=== PATIENT | male | born 1990 | race Hispanic/Latino ===

== ENCOUNTER 2016-12-08 07:44 | Observation (INO) | payer MEDICAID, OTHER ==
[2016-12-08 07:52] VITALS: BMI 20.9
[2016-12-08 07:56] VITALS: O2SAT 100
[2016-12-08] MEDS ORDERED: Sodium Chloride 0.9% 1,000 ML IV STA (08:38)
--- NOTE | 2016-12-08 08:54 | ED PDOC ---
Arrival/HPI - General Chief Complaint: Shortness Of Breath Time Seen by Provider: 12/08/16 07:47 Historian: Patient - History of Present Illness Narrative History of Present Illness (Text): 12/08/16 08:47 Vimal Ospina is a 26 year old male who presents to the emergency department complaining of shortness of breath which began around 5 a.m. today morning. Patient states he also developed left sided paresthesia to face, arm and leg at that time, and states his left arm was cramped up as a result. States he used his mother's asthma breathing treatment at home for appreciable relief. Patient also complains of indigestion since yesterday and experienced 1 episode of vomiting in the morning. Also reports of mild lightheadness. Denies fever, chills, headache, chest pain, shortness of breath, cough, abdominal pain, diarrhea, urinary symptoms or any other complaints at this time. PMD: . Time/Duration: 4-6 hours Symptom Onset: Gradual Symptom Course: Improving Severity Level: Mild Activities at Onset: Light Context: Home Past Medical History - Provider Review Nursing Documentation Reviewed: Yes - Infectious Disease Hx of Infectious Diseases: None - Tetanus Immunization Tetanus Immunization: Unknown - Past Medical History Past Medical History: No Previous - Cardiac Hx Cardiac Disorders: No Hx Hypertension: No - Pulmonary Hx Asthma: Yes ("when he was younger") Hx Tuberculosis: No - Neurological HX Cerebrovascular Accident: No Hx Seizures: No - Hematological/Oncological Hx Cancer: No - Integumentary Other/Comment: SHINGLES - Genitourinary/Gynecological Hx Sexually Transmitted Diseases: No - Psychiatric Hx Psychophysiologic Disorder: No Hx Substance Use: Yes (CANNABIS) - Past Surgical History Past Surgical History: No Previous - Anesthesia Hx Anesthesia: No Hx Anesthesia Reactions: No Hx Malignant Hyperthermia: No - Suicidal Assessment Feels Threatened In Home Enviroment: No Family/Social History - Physician Review Nursing Documentation Reviewed: Yes Family/Social History: No Known Family HX Smoking Status: Heavy Smoker > 10 Cigarettes Daily Hx Alcohol Use: No Hx Substance Use: Yes (CANNABIS) Substance used: marijuana Amount: 1 Hx Substance Use Treatment: No Allergies/Home Meds Allergies/Adverse Reactions: Allergies lactose Allergy (Verified 12/08/16 07:53) DIARRHEA Home Medications: Home Meds Medication Instructions Recorded Confirmed No Known Home Med 12/08/16 12/08/16 Review of Systems - Physician Review All systems were reviewed & negative as marked: Yes - Review of Systems Constitutional: Normal. absent: Fatigue, Fevers Respiratory: SOB. absent: Cough, Sputum Cardiovascular: Normal. absent: Chest Pain, Palpitations Gastrointestinal: Nausea, Vomiting. absent: Abdominal Pain, Diarrhea Genitourinary Male: Normal. absent: Dysuria, Frequency Musculoskeletal: Normal. absent: Back Pain Neurological: Dizziness (lightheadedness ), Other (paresthesia ) Psychiatric: Normal Physical Exam - Physical Exam Narrative Physical Exam (Text): Constitutional: No acute distress. Head: Normocephalic. Atraumatic. Eyes: PERRL. ENT: Moist mucous membranes. No pharyngeal erythema or exudates. Neck: Supple. Cardiovascular: Regular rate. Chest: No tenderness. Respiratory: Clear to auscultation bilaterally. GI: Soft. Nontender. Nondistended. Back: No CVA tenderness. Musculoskeletal: No tenderness or swelling of extremities. Skin: No rash. Neurologic: Alert, no focal deficit. Motor strength 5/5 X4. Cranial nerves II- XII intact. Sensation to touch intact bilaterally. [id number] test normla. Vital Signs Reviewed: Yes Vital Signs Temp Pulse Resp BP Pulse Ox 12/08/16 11:00 55 L 17 150/90 100 12/08/16 09:45 58 L 17 154/70 H 100 12/08/16 07:56 97.7 F 53 L 17 155/82 H 100 12/08/16 07:55 17 100 Temperature: Afebrile Blood Pressure: Normal Pulse: Regular Respiratory Rate: Normal Appearance: Positive for: Well-Appearing, Non-Toxic, Comfortable Pain Distress: None Mental Status: Positive for: Alert and Oriented X 3 Medical Decision Making ED Course and Treatment: 12/08/16 08:59 Impression: A 26 year old male who presents to the emergency department complaining of shortness of breath and paresthesia since 5 am. Plan: -- EKG -- Labs -- Chest X-ray -- Zofran -- IV fluids -- Urinalysis -- Reassess and disposition Progress Notes: 12/08/16 09:00 EKG interpreted by em: NSR @ 50bpm. No ST elevations. No T wave inversions. Patient is wood at baseline per records from previous visits. 12/08/16 10:36 Chest X-ray reviewed: IMPRESSION: No active disease. Patient with no active symptoms. Potassium repleted. Dr. House accepts patient for observation for hypokalemia. - Lab Interpretations Lab Results: 12/08/16 09:15 12/08/16 11:00 Lab Results 12/08/16 11:00: Potassium 2.6 L* 12/08/16 09:15: Sodium 140, Potassium 2.7 L*, Chloride 95, Carbon Dioxide 29, Anion Gap 19, BUN 13, Creatinine 0.9, Est GFR ( Amer) > 60, Est GFR (Non- Af Amer) > 60, Random Glucose 95, Calcium 9.6, Phosphorus 2.2 L, Magnesium 2.2, Total Bilirubin 0.9, AST 46, ALT 46, Alkaline Phosphatase 86, Total Protein 8.6 H, Albumin 4.5, Globulin 4.2, Albumin/Globulin Ratio 1.1 12/08/16 09:15: WBC 6.7 D, RBC 5.19, Hgb 15.0, Hct 41.4 L, MCV 79.8 L, MCH 28.9 , MCHC 36.2, RDW 13.7, Plt Count 222, MPV 9.7, Gran % 69.9 H, Lymph % (Auto) 18.6 L, Yell % (Auto) 10.7 H, Eos % (Auto) 0.5 L, Baso % (Auto) 0.3, Gran # 4.65 , Lymph # 1.2, Yell # 0.7 H, Eos # 0.0, Baso # 0.02 12/08/16 08:38: Urine Color Yellow, Urine Appearance Clear, Urine pH 8.5, Ur Specific [place] 1.010, Urine Protein Negative, Urine Glucose (UA) Negative, Urine Ketones 15 H, Urine Blood Negative, Urine Nitrate Negative, Urine Bilirubin Negative, Urine Urobilinogen 0.2, Ur Leukocyte Esterase Negative I have reviewed the lab results: Yes - RAD Interpretation Narrative RAD Interpretations (Text): Chest X-ray results: FINDINGS: LUNGS: No active pulmonary disease. PLEURA: No significant pleural effusion identified. No pneumothorax apparent. CARDIOVASCULAR: Normal. OSSEOUS STRUCTURES: No significant abnormalities. VISUALIZED UPPER ABDOMEN: Normal. OTHER FINDINGS: None. IMPRESSION: No active disease. 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 - Medication Orders Current Medication Orders: Discontinued Medications Sodium Chloride (Sodium Chloride 0.9%) 1,000 mls @ 999 mls/hr IV .Q1H1M STA Stop: 12/08/16 09:38 Last Admin: 12/08/16 09:12 Dose: 999 mls/hr Potassium Chloride (Potassium Chloride 10 Meq/100 Ml) 10 meq in 100 mls @ 100 mls/hr IVPB ONCE ONE Stop: 12/08/16 10:50 Last Admin: 12/08/16 10:14 Dose: 100 mls/hr Ondansetron HCl (Zofran Inj) 4 mg IVP STAT STA Stop: 12/08/16 08:39 Last Admin: 12/08/16 09:13 Dose: 4 mg Potassium Chloride (K-Dur 20 Meq Er Tab) 40 meq PO STAT STA Stop: 12/08/16 09:52 Last Admin: 12/08/16 10:13 Dose: 40 meq - Scribe Statement The provider has reviewed the documentation as recorded by the David Qiu Provider Attestation: All medical record entries made by the David were at my direction and personally dictated by me. I have reviewed the chart and agree that the record accurately reflects my personal performance of the history, physical exam, medical decision making, and the department course for this patient. I have also personally directed, reviewed, and agree with the discharge instructions and disposition. Disposition/Present on Arrival - Present on Arrival Any Indicators Present on Arrival: No History of DVT/PE: No History of Uncontrolled Diabetes: No Urinary Catheter: No History of Decub. Ulcer: No History Surgical Site Infection Following: None - Disposition Have Diagnosis and Disposition been Completed?: Yes Diagnosis: Hypokalemia Disposition: HOSPITALIZED Disposition Time: 10:00 Patient Plan: Observation, Telemetry Condition: FAIR
[2016-12-08 09:20] LABS: ADD MANUAL DIFF? NO
[2016-12-08 09:23] LABS: BASO # 0.02 K/mm3 (0.0-2.0); BASO % 0.3 % (0.0-3.0); EOS % 0.5 % (1.5-5.0); GRAN # 4.65 (1.4-6.5); GRAN % 69.9 % (50.0-68.0); HEMATOCRIT 41.4 % (42.0-52.0); LYMPH # 1.2 (1.2-3.4); LYMPH % 18.6 % (22.0-35.0); MEAN CELL VOLUME 79.8 fL (80.0-105.0); MEAN CORPUSCULAR HEMOGLOBIN 28.9 pg (25.0-35.0); MEAN CORPUSCULAR HGB CONC 36.2 g/dl (31.0-37.0); MEAN PLATELET VOLUME 9.7 fl (7.0-11.0); MONO # 0.7 (0.1-0.6); MONO % 10.7 % (1.0-6.0); PLATELET COUNT 222 10^3/uL (120.0-450.0); RED CELL DISTRIBUTION WIDTH 13.7 % (11.5-14.5); WHITE BLOOD COUNT 6.7 10^3/ul (4.5-11.0)
[2016-12-08 09:24] LABS: PH,URINE 8.5 (4.7-8.0); URINE BILIRUBIN NEGATIVE (NEGATIVE); URINE BLOOD NEGATIVE (NEGATIVE); URINE GLUCOSE (UA) NEGATIVE (NEGATIVE); URINE KETONE 15 mg/dL (NEGATIVE); URINE LEUKOCYTE ESTERASE NEGATIVE Leu/uL (NEGATIVE); URINE PROTEIN NEGATIVE mg/dL (<30 mg/dL); URINE UROBILINOGEN 0.2 E.U./dL (<1 E.U./dL)
[2016-12-08 09:26] LABS: URINE APPEARANCE CLEAR (CLEAR); URINE COLOR YELLOW (YELLOW)
[2016-12-08 09:36] LABS: ALB/GLOB RATIO 1.1 (1.1-1.8); ALKALINE PHOSPHATASE 86 U/L (38-133); ALT/SGPT 46 U/L (7-56); AST/SGOT 46 U/L (15-59); BILIRUBIN,TOTAL 0.9 mg/dL (0.2-1.3); BLOOD UREA NITROGEN 13 mg/dL (7-21); CALCIUM 9.6 mg/dL (8.4-10.5); CARBON DIOXIDE 29 mmol/L (21-33); CHLORIDE 95 mmol/L (95-110); GFR AFRICAN-AMERICAN > 60; GLUCOSE,RANDOM 95 mg/dL (70-110); MAGNESIUM 2.2 mg/dL (1.7-2.2); PHOSPHOROUS 2.2 mg/dL (2.5-4.5); SODIUM 140 mmol/L (132-148); TOTAL PROTEIN 8.6 g/dL (5.8-8.3)
[2016-12-08 09:41] LABS: POTASSIUM 2.7 mmol/L (3.6-5.0)
[2016-12-08] MEDS ORDERED: Potassium Chloride 20 mEq ER Tab PO STA ×2 (09:51→16:47)
--- NOTE | 2016-12-08 10:14 | RAD ---
HISTORY: dyspnea COMPARISON: 02/15/2015 TECHNIQUE: Chest PA and lateral FINDINGS: LUNGS: No active pulmonary disease. PLEURA: No significant pleural effusion identified. No pneumothorax apparent. CARDIOVASCULAR: Normal. OSSEOUS STRUCTURES: No significant abnormalities. VISUALIZED UPPER ABDOMEN: Normal. OTHER FINDINGS: None. IMPRESSION: No active disease.
--- NOTE | 2016-12-08 15:48 | CP.PCM.HP ---
<Ngozi Montalvo - Last Filed: 12/08/16 16:34> History of Present Illness - History of Present Illness History of Present Illness: CC: I have face and arm cramps. Patient is a 26 y/o with pmh of asthma ( as a kid) presenting with face and arm and leg cramps. Patient states yesterday he was experiencing indigestion, decided to take more than 6 tabs of lasha-seltzer, and more than 2 tabs of Colace. Then all day yesterday and today he experienced diarrhea, multiple time. Patient states this AM while he was talking on the face he started to experience paresthesia of the face, arm and leg, accompanied with cramps, pain. Patient also states he felt sob this AM, and decided to use his mom's albuterol inhaler. Patient states he only used two puffs. Patient denies recent antibiotic use. Patient denies cp, sob, headache, dizziness, palpitation, n/v. Patient has not experience diarrhea since admission. PMH: As stated above PSH: denies FMH: mom alive has RA, dad alive and well Social: admits to pack a day of tobacco, occasional alcohol, admits to occasional marijuana. denies cocaine and heroine or pcp. Allergy: lactulose Present on Admission - Present on Admission Any Indicators Present on Admission: No History of DVT/PE: No History of Uncontrolled Diabetes: No Urinary Catheter: No Decubitus Ulcer Present: No Review of Systems - Review of Systems All systems: reviewed and no additional remarkable complaints except Review of Systems: As mentioned in HPI. Past Patient History - Infectious Disease Hx of Infectious Diseases: None - Tetanus Immunizations Tetanus Immunization: Unknown - Past Social History Smoking Status: Heavy Smoker > 10 Cigarettes Daily Alcohol: None Drugs: Denies Home Situation {Lives}: With Family - CARDIAC Hx Cardiac Disorders: No Hx Hypertension: No - PULMONARY Hx Asthma: Yes ("when he was younger") Hx Tuberculosis: No - NEUROLOGICAL HX Cerebrovascular Accident: No Hx Seizures: No - HEMATOLOGICAL/ONCOLOGICAL Hx Cancer: No - INTEGUMENTARY Other/Comment: SHINGLES - GENITOURINARY/GYNECOLOGICAL Hx Sexually Transmitted Disorders: No - PSYCHIATRIC Hx Psychophysiologic Disorder: No Hx Substance Use: Yes (CANNABIS) - SURGICAL HISTORY Hx Surgeries: No - ANESTHESIA Hx Anesthesia: No Hx Anesthesia Reactions: No Hx Malignant Hyperthermia: No Meds Allergies/Adverse Reactions: Allergies Allergy/AdvReac Type Severity Reaction Status Date / Time lactose Allergy DIARRHEA Verified 12/08/16 16:14 Physical Exam - Constitutional Appears: No Acute Distress - Head Exam Head Exam: ATRAUMATIC, NORMAL INSPECTION, NORMOCEPHALIC - Eye Exam Eye Exam: EOMI, Normal appearance, PERRL. absent: Scleral icterus - ENT Exam ENT Exam: Mucous Membranes Moist - Neck Exam Neck exam: Positive for: Full Rom, Normal Inspection. Negative for: Tenderness - Respiratory Exam Respiratory Exam: Clear to Auscultation Bilateral, NORMAL BREATHING PATTERN. absent: Prolonged Expiratory Phase, Rales, Rhonchi, Wheezes, Respiratory Distress, Stridor - Cardiovascular Exam Cardiovascular Exam: Bradycardia, REGULAR RHYTHM, RRR, +S1, +S2. absent: Tachycardia, Diastolic murmur, Irregular Rhythm, Systolic Murmur - GI/Abdominal Exam GI & Abdominal Exam: Normal Bowel Sounds, Soft. absent: Distended, Firm, Guarding, Rigid, Tenderness - Extremities Exam Extremities exam: Positive for: normal inspection. Negative for: pedal edema - Back Exam Back exam: NORMAL INSPECTION - Neurological Exam Neurological exam: Alert, Normal Gait, Oriented x3, Reflexes Normal - Psychiatric Exam Psychiatric exam: Normal Affect, Normal Mood - Skin Skin Exam: Dry, Intact, Normal Color, Warm Results - Vital Signs Recent Vital Signs: Last Vital Signs Temp 97.7 F 12/08/16 07:56 Pulse 59 L 12/08/16 14:51 Resp 17 12/08/16 14:51 BP 118/70 12/08/16 14:51 Pulse Ox 100 12/08/16 14:51 - Labs Result Diagrams: 12/08/16 09:15 12/08/16 11:00 - EKG Data EKG Interpreted by: Myself EKG shows normal: Sinus rhythm Rate: Bradycardia Assessment & Plan - Assessment and Plan (Free Text) Assessment: Patient is a 26 y/o with no significant pmh admitted with severe hypokalemia . 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 Patient seen, examined, case discussed with Dr House. - Date & Time Date: 12/08/16 Time: 16:30 <Nelson House - Last Filed: 12/26/16 18:58> Results - Vital Signs Recent Vital Signs: Last Vital Signs Temp 97 F L 12/08/16 19:19 Pulse 83 12/08/16 19:19 Resp 17 12/08/16 19:19 BP 129/81 12/08/16 19:19 Pulse Ox 100 12/08/16 14:51 - Labs Result Diagrams: 12/09/16 07:00 12/09/16 07:00 Attending/Attestation - Attestation I have personally seen and examined this patient.: Yes I have fully participated in the care of the patient.: Yes I have reviewed all pertinent clinical information: Yes Notes (Text): 12/26/16 18:58 Medical record note made by the resident after discussion with my direction and input after the patient was personally seen and examined by me. I have reviewed the chart and agree that the record accurately reflects by personal performance of the history, physical exam, data review, and medical decision-making, in the course for the patient. I have also personally directed the plan of care.
--- NOTE | 2016-12-08 16:23 | CARD ---
APPROVED REPORT EKG Measurement Heart [id number] <Conclusion> Poor data quality, interpretation may be adversely affected Sinus bradycardia Minimal voltage criteria for LVH, may be normal variant Borderline ECG
[2016-12-08 17:05] LABS: BLOOD UREA NITROGEN 9 mg/dL (7-21); CALCIUM 8.9 mg/dL (8.4-10.5); CARBON DIOXIDE 25 mmol/L (21-33); CHLORIDE 102 mmol/L (98-107); GFR AFRICAN-AMERICAN > 60; GLUCOSE,RANDOM 87 mg/dL (70-110); POTASSIUM 3.1 mmol/L (3.6-5.0); SODIUM 137 mmol/L (132-148)
[2016-12-08] MEDS: Potassium & Sodium Phosphate PO SCH ×2 (17:40→21:29)
[2016-12-08 18:51] VITALS: BP 129/81; PULSE 83; TEMP 97
[2016-12-08 19:38] VITALS: RESP 17
[2016-12-08] MEDS ORDERED: Pneumococcal 23-Valent Vaccine IM ONE (19:38)
--- NOTE | 2016-12-10 11:47 | CP.PCM.DIS ---
<StacyeleanorNgozi adrian - Last Filed: 12/13/16 19:17> Provider - Provider Date of Admission: 12/08/16 12:49 Attending physician: Wiliam Beltran MD Primary care physician: Wiliam Beltran MD Consults: none Time Spent in preparation of Discharge (in minutes): 40 Diagnosis - Discharge Diagnosis (1) Hypokalemia due to loss of potassium Status: Acute (2) Hypophosphatemia Status: Acute (3) Hypertension Status: Acute Hospital Course - Lab Results Lab Results: Most Recent Lab Values WBC 6.7 10^3/ul (4.5-11.0) D 12/08/16 09:15 RBC 5.19 10^6/uL (3.5-6.1) 12/08/16 09:15 Hgb 15.0 gm/dL (14.0-18.0) 12/08/16 09:15 Hct 41.4 % (42.0-52.0) L 12/08/16 09:15 MCV 79.8 fL (80.0-105.0) L 12/08/16 09:15 MCH 28.9 pg (25.0-35.0) 12/08/16 09:15 MCHC 36.2 g/dl (31.0-37.0) 12/08/16 09:15 RDW 13.7 % (11.5-14.5) 12/08/16 09:15 Plt Count 222 10^3/uL (120.0-450.0) 12/08/16 09:15 MPV 9.7 fl (7.0-11.0) 12/08/16 09:15 Gran % 69.9 % (50.0-68.0) H 12/08/16 09:15 Lymph % (Auto) 18.6 % (22.0-35.0) L 12/08/16 09:15 [place] % (Auto) 10.7 % (1.0-6.0) H 12/08/16 09:15 Eos % (Auto) 0.5 % (1.5-5.0) L 12/08/16 09:15 Baso % (Auto) 0.3 % (0.0-3.0) 12/08/16 09:15 Gran # 4.65 (1.4-6.5) 12/08/16 09:15 Lymph # 1.2 (1.2-3.4) 12/08/16 09:15 [place] # 0.7 (0.1-0.6) H 12/08/16 09:15 Eos # 0.0 (0.0-0.7) 12/08/16 09:15 Baso # 0.02 K/mm3 (0.0-2.0) 12/08/16 09:15 Sodium 137 mmol/L (132-148) 12/08/16 16:50 Potassium 3.1 mmol/L (3.6-5.0) L 12/08/16 16:50 Chloride 102 mmol/L (98-107) 12/08/16 16:50 Carbon Dioxide 25 mmol/L (21-33) 12/08/16 16:50 Anion Gap 13 (10-20) 12/08/16 16:50 BUN 9 mg/dL (7-21) 12/08/16 16:50 Creatinine 0.9 mg/dL (0.5-1.4) 12/08/16 16:50 Est GFR ( Amer) > 60 12/08/16 16:50 Est GFR (Non-Af Amer) > 60 12/08/16 16:50 Random Glucose 87 mg/dL (70-110) 12/08/16 16:50 Calcium 8.9 mg/dL (8.4-10.5) 12/08/16 16:50 Phosphorus 2.2 mg/dL (2.5-4.5) L 12/08/16 09:15 Magnesium 2.2 mg/dL (1.7-2.2) 12/08/16 09:15 Total Bilirubin 0.9 mg/dL (0.2-1.3) 12/08/16 09:15 AST 46 U/L (15-59) 12/08/16 09:15 ALT 46 U/L (7-56) 12/08/16 09:15 Alkaline Phosphatase 86 U/L (38-133) 12/08/16 09:15 Total Protein 8.6 g/dL (5.8-8.3) H 12/08/16 09:15 Albumin 4.5 g/dL (3.0-4.8) 12/08/16 09:15 Globulin 4.2 gm/dL 12/08/16 09:15 Albumin/Globulin Ratio 1.1 (1.1-1.8) 12/08/16 09:15 Urine Color Yellow (YELLOW) 12/08/16 08:38 Urine Appearance Clear (CLEAR) 12/08/16 08:38 Urine pH 8.5 (4.7-8.0) 12/08/16 08:38 Ur Specific [place] 1.010 (1.005-1.035) 12/08/16 08:38 Urine Protein Negative mg/dL (<30 mg/dL) 12/08/16 08:38 Urine Glucose (UA) Negative mg/dL (NEGATIVE) 12/08/16 08:38 Urine Ketones 15 mg/dL (NEGATIVE) H 12/08/16 08:38 Urine Blood Negative (NEGATIVE) 12/08/16 08:38 Urine Nitrate Negative (NEGATIVE) 12/08/16 08:38 Urine Bilirubin Negative (NEGATIVE) 12/08/16 08:38 Urine Urobilinogen 0.2 E.U./dL (<1 E.U./dL) 12/08/16 08:38 Ur Leukocyte Esterase Negative Heladio/uL (NEGATIVE) 12/08/16 08:38 - Hospital Course Hospital Course: Patient is a 26 y/o with no significant pmh presented with sob, extremities cramps, paresthesia and weakness. Patient had basic labs which revealed severe hypokalemia with EKG changes. The hypokalemia was suspected to be due to diuretic use and albuterol inhalers. Patient was admitted to tele floor for cardiac monitoring. Patient also had kcl doses, repeat labs revealed improved potassium level. Patient was mildly hypertensive on admission likely from hypokalemia. Magnesium level was normal. Patient to be discharged and follow up with Dr Beltran. - Date & Time of H&P Date of H&P: 12/08/16 Time of H&P: 15:48 Discharge Exam - Head Exam Head Exam: ATRAUMATIC, NORMAL INSPECTION, NORMOCEPHALIC - Eye Exam Eye Exam: EOMI, Normal appearance, PERRL. absent: Scleral icterus - ENT Exam ENT Exam: Mucous Membranes Moist - Neck Exam Neck exam: Normal Inspection - Respiratory Exam Respiratory Exam: Clear to PA & Lateral, NORMAL BREATHING PATTERN, UNREMARKABLE. absent: Rales, Rhonchi, Wheezes, Respiratory Distress, Stridor - Cardiovascular Exam Cardiovascular Exam: REGULAR RHYTHM, RRR, +S1, +S2 - GI/Abdominal Exam GI & Abdominal Exam: Normal Bowel Sounds, Unremarkable. absent: Distended, Firm , Guarding, Rigid, Soft, Tenderness - Extremities Exam Extremities exam: normal inspection - Back Exam Back exam: NORMAL INSPECTION - Neurological Exam Neurological exam: Alert, Oriented x3 - Psychiatric Exam Psychiatric exam: Normal Affect, Normal Mood - Skin Skin Exam: Dry, Intact, Normal Color, Warm Discharge Plan - Follow Up Plan Condition: FAIR Disposition: HOME/ ROUTINE Patient education suggested?: Yes Referrals: Wiliam Beltran MD [Primary Care Provider] - <Wiliam Beltran - Last Filed: 12/29/16 13:51> Provider - Provider Date of Admission: 12/08/16 12:49 Attending physician: Wiliam Beltran MD Primary care physician: Wiliam Beltran MD [facility] Course - Lab Results Lab Results: Most Recent Lab Values WBC 5.1 10^3/ul (4.5-11.0) D 12/09/16 07:00 RBC 4.86 10^6/uL (3.5-6.1) 12/09/16 07:00 Hgb 13.7 gm/dL (14.0-18.0) L 12/09/16 07:00 Hct 40.2 % (42.0-52.0) L 12/09/16 07:00 MCV 82.7 fL (80.0-105.0) 12/09/16 07:00 MCH 28.2 pg (25.0-35.0) 12/09/16 07:00 MCHC 34.1 g/dl (31.0-37.0) 12/09/16 07:00 RDW 14.3 % (11.5-14.5) 12/09/16 07:00 Plt Count 210 10^3/uL (120.0-450.0) 12/09/16 07:00 MPV 9.6 fl (7.0-11.0) 12/09/16 07:00 Gran % 69.9 % (50.0-68.0) H 12/08/16 09:15 Lymph % (Auto) 18.6 % (22.0-35.0) L 12/08/16 09:15 [place] % (Auto) 10.7 % (1.0-6.0) H 12/08/16 09:15 Eos % (Auto) 0.5 % (1.5-5.0) L 12/08/16 09:15 Baso % (Auto) 0.3 % (0.0-3.0) 12/08/16 09:15 Gran # 4.65 (1.4-6.5) 12/08/16 09:15 Lymph # 1.2 (1.2-3.4) 12/08/16 09:15 [place] # 0.7 (0.1-0.6) H 12/08/16 09:15 Eos # 0.0 (0.0-0.7) 12/08/16 09:15 Baso # 0.02 K/mm3 (0.0-2.0) 12/08/16 09:15 Sodium 137 mmol/L (132-148) 12/09/16 07:00 Potassium 4.5 mmol/L (3.6-5.0) 12/09/16 07:00 Chloride 102 mmol/L (98-107) 12/09/16 07:00 Carbon Dioxide 26 mmol/L (21-33) 12/09/16 07:00 Anion Gap 14 (10-20) 12/09/16 07:00 BUN 9 mg/dL (7-21) 12/09/16 07:00 Creatinine 1.0 mg/dL (0.5-1.4) 12/09/16 07:00 Est GFR ( Amer) > 60 12/09/16 07:00 Est GFR (Non-Af Amer) > 60 12/09/16 07:00 Random Glucose 92 mg/dL (70-110) 12/09/16 07:00 Calcium 9.2 mg/dL (8.4-10.5) 12/09/16 07:00 Phosphorus 4.0 mg/dL (2.5-4.5) 12/09/16 07:00 Magnesium 2.1 mg/dL (1.7-2.2) 12/09/16 07:00 Total Bilirubin 0.9 mg/dL (0.2-1.3) 12/09/16 07:00 AST 30 U/L (15-59) 12/09/16 07:00 ALT 36 U/L (7-56) 12/09/16 07:00 Alkaline Phosphatase 60 U/L (38-133) 12/09/16 07:00 Total Protein 7.8 g/dL (5.8-8.3) 12/09/16 07:00 Albumin 4.2 g/dL (3.0-4.8) 12/09/16 07:00 Globulin 3.7 gm/dL 12/09/16 07:00 Albumin/Globulin Ratio 1.1 (1.1-1.8) 12/09/16 07:00 Urine Color Yellow (YELLOW) 12/08/16 08:38 Urine Appearance Clear (CLEAR) 12/08/16 08:38 Urine pH 8.5 (4.7-8.0) 12/08/16 08:38 Ur Specific [place] 1.010 (1.005-1.035) 12/08/16 08:38 Urine Protein Negative mg/dL (<30 mg/dL) 12/08/16 08:38 Urine Glucose (UA) Negative mg/dL (NEGATIVE) 12/08/16 08:38 Urine Ketones 15 mg/dL (NEGATIVE) H 12/08/16 08:38 Urine Blood Negative (NEGATIVE) 12/08/16 08:38 Urine Nitrate Negative (NEGATIVE) 12/08/16 08:38 Urine Bilirubin Negative (NEGATIVE) 12/08/16 08:38 Urine Urobilinogen 0.2 E.U./dL (<1 E.U./dL) 12/08/16 08:38 Ur Leukocyte Esterase Negative Heladio/uL (NEGATIVE) 12/08/16 08:38 Attending/Attestation - Attestation I have personally seen and examined this patient.: Yes I have fully participated in the care of the patient.: Yes I have reviewed all pertinent clinical information, including history, physical exam and plan: Yes Notes (Text): 12/29/16 13:51 Resident note done after seen and examined by me with discussion. The note is a representation of my history, physical and plan for patient.
[2016-12-10 16:28] LABS: ALB/GLOB RATIO 1.1 (1.1-1.8); ALKALINE PHOSPHATASE 60 U/L (38-133); ALT/SGPT 36 U/L (7-56); AST/SGOT 30 U/L (15-59); BILIRUBIN,TOTAL 0.9 mg/dL (0.2-1.3); BLOOD UREA NITROGEN 9 mg/dL (7-21); CALCIUM 9.2 mg/dL (8.4-10.5); CARBON DIOXIDE 26 mmol/L (21-33); CHLORIDE 102 mmol/L (98-107); GFR AFRICAN-AMERICAN > 60; GLUCOSE,RANDOM 92 mg/dL (70-110); MAGNESIUM 2.1 mg/dL (1.7-2.2); POTASSIUM 4.5 mmol/L (3.6-5.0); SODIUM 137 mmol/L (132-148); TOTAL PROTEIN 7.8 g/dL (5.8-8.3)
[2016-12-10 17:25] LABS: HEMATOCRIT 40.2 % (42.0-52.0); MEAN CELL VOLUME 82.7 fL (80.0-105.0); MEAN CORPUSCULAR HEMOGLOBIN 28.2 pg (25.0-35.0); MEAN CORPUSCULAR HGB CONC 34.1 g/dl (31.0-37.0); MEAN PLATELET VOLUME 9.6 fl (7.0-11.0); RED CELL DISTRIBUTION WIDTH 14.3 % (11.5-14.5); WHITE BLOOD COUNT 5.1 10^3/ul (4.5-11.0)
== END 2016-12-09 14:38 | disposition home or self-care (01) ==
LOC: ED 07:44 → ERH 12:49 → 2RNO 15:36
PROVIDERS: ADMIT Internal Medicine; ATTEND Internal Medicine
DX: E87.6 Hypokalemia (principal); T50.2X5A Adverse effect of carbonic-anhydrase inhibitors, benzothiadiazides and other diuretics, initial encounter; T48.6X5A Adverse effect of antiasthmatics, initial encounter; J45.909 Unspecified asthma, uncomplicated; F12.90 Cannabis use, unspecified, uncomplicated; Z82.5 Family history of asthma and other chronic lower respiratory diseases; F17.210 Nicotine dependence, cigarettes, uncomplicated; B02.9 Zoster without complications; E83.39 Other disorders of phosphorus metabolism; R19.7 Diarrhea, unspecified
CPT/HCPCS: 36415; 71020; 80053; 81003; 83735; 84100; 84132; 85025; 85027; 93005; 96361; 96374; 99285; G0378; J2405; J3480; J7040